=== PATIENT | male | born 1960 | race Caucasian/White ===

== ENCOUNTER 2018-08-17 01:24 | Observation (INO) | payer OTHER ==
[2018-08-17 02:01] LABS: Absolute Lymphocytes (CBC) 1.5 K/uL (0.7-4.9); Absolute Monocytes 0.7 K/uL (0.1-1.3); Absolute Neutrophil 8.3 K/uL (1.8-8.0); Basophils % 0.4 % (0-1.3); Eosinophils % 1.1 % (0-4.4); Hematocrit 46.2 % (39.6-49.0); Lymphocytes % 14.3 % (15.3-44.8); MCH 30.1 pg (27.0-35.0); Monocytes % 6.2 % (3.3-12.3); RBC Red Blood Cell Count 5.19 M/uL (4.33-5.43)
[2018-08-17 02:02] LABS: Protime INR 1.01
--- NOTE | 2018-08-17 02:37 | ER ---
Nurse's Notes [facility] Name: Edd Mosqueda Age: 57 yrs Sex: Male : 1960 Arrival Date: 08/17/2018 Time: 01:25 Bed 17 Private MD: Diagnosis: Chest pain, unspecified;Essential (primary) hypertension Presentation: 08/17 01:39 Presenting complaint: Patient states: Chest pain that began about 1900 tonight, states lp1 thought it would get better but worsened when laying down, "I felt like I couldn't get a deep breath"; Denies any N/V, dizziness; No hx; States taking Ibuprofen x2, Aspirin x2 CAMPAIGN ASSISTANT. Transition of care: patient was not received from another setting of care. Onset of symptoms was August 16, 2018 at 19:00. Risk Assessment: Do you want to hurt yourself or someone else? Patient reports no desire to harm self or others. Initial Sepsis Screen: Does the patient meet any 2 criteria? No. Patient's initial sepsis screen is negative. Does the patient have a suspected source of infection? No. Patient's initial sepsis screen is negative. Care prior to arrival: None. 01:39 Method Of Arrival: Ambulatory lp1 01:39 Acuity: COTY 3 lp1 Triage Assessment: 04:14 General: Behavior is calm, cooperative. lp1 Historical: - Allergies: 01:40 No Known Allergies; lp1 - Home Meds: 01:40 None [Active]; lp1 - PMHx: 01:40 None; lp1 - PSHx: 01:40 None; lp1 - Immunization history:: Adult Immunizations up to date. - Social history:: Smoking status: Patient/guardian denies using tobacco. - Ebola Screening: : No symptoms or risks identified at this time. - Family history:: not pertinent. Screenin:41 Abuse screen: Denies threats or abuse. Denies injuries from another. Nutritional lp1 screening: No deficits noted. Tuberculosis screening: No symptoms or risk factors identified. Fall Risk None identified. Assessment: 01:45 General: Appears. Pain: Pain does not radiate. Pain began 0 08/16/18. ak1 03:15 Reassessment: Patient appears in no apparent distress at this time. Patient and/or lp1 family updated on plan of care and expected duration. Pain level reassessed. Patient is alert, oriented x 3, equal unlabored respirations, skin warm/dry/pink. Patient states feeling better. 04:13 Reassessment: Patient appears in no apparent distress at this time. Pain: Denies pain. lp1 Cardiovascular: Patient's skin is warm and dry. Rhythm is sinus rhythm. Derm: Skin is pink, warm \\T\\ dry. Vital Signs: 01:40 BP 150 / 94; Pulse 74; Resp 20; Temp 98.9(O); Pulse Ox 98% on R/A; Weight 95.25 kg; lp1 Height 5 ft. 8 in. (172.72 cm); Pain 3/10; 02:30 BP 144 / 88; Pulse 71; Resp 20; Pulse Ox 96% on R/A; lp1 03:00 BP 148 / 97; Pulse 72; Resp 17; Pulse Ox 96% ; rr5 04:29 BP 135 / 79; Pulse 75; Resp 17; Pulse Ox 98% on R/A; rr5 01:40 Body Mass Index 31.93 (95.25 kg, 172.72 cm) lp1 ED Course: 01:25 Patient arrived in ED. am2 01:40 Triage completed. lp1 01:41 Arm band placed on left wrist. lp1 01:41 Patient has correct armband on for positive identification. Placed in gown. Bed in low lp1 position. Call light in reach. teletypesetter monitor on. Pulse ox on. NIBP on. 01:41 EKG done, by ED staff, reviewed by Jf Negron MD. Patient maintains SpO2 saturation lp1 greater than 95% on room air. 01:43 Ruthie Wu RN is Primary Nurse. ak1 01:46 Initial lab(s) drawn, by va, sent to lab. Inserted saline lock: 18 gauge in right ak1 forearm, using aseptic technique. Blood collected. 01:51 Jf Negron MD is Attending Physician. nimesh 02:05 X-ray completed. Portable x-ray completed in exam room. Patient tolerated procedure kw well. 02:06 XRAY Chest (1 view) In Process Unspecified. EDMS 02:35 Wolfgang Jiang MD is Hospitalizing Provider. nimesh 03:15 Report received from Ruthie Wu RN. lp1 03:[address] via stretcher. kw1 03:34 CT completed. Patient tolerated procedure well. Patient moved back from CT. kw1 04:12 No provider procedures requiring assistance completed. Patient admitted, IV remains in lp1 place. 08:13 EKG done, by emergency room tech. reviewed by Geo Zhu MD. 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 nimesh 04:14 Condition: stable lp1 04:14 Instructed on the need for admit. 04:42 Admitted to ER Hold. Please see [facility] for further documentation. lp1 13:14 Patient left the ED. ss Signatures: Dispatcher [employer] EDMS Jf Negron MD MD cha Smirch, Shelby, RN RN Mikala Joshi Laura, RN RN 1 Mary Lou Winter, tree driller EKG Tat1 Ruthie Wu RN RN oh1 Mary Lou Choe am2 Allie Riley kw Robert Resendez RN RN rr5 Corrections: (The following items were deleted from the chart) 04:48 04:42 Admitted to ER Hold. Please see [facility] for further documentation. lp1 lp1 05:15 05:05 BP 130 / 78; Pulse 101bpm; Resp 16bpm; Pulse Ox 97% RA; Temp 98.3F Oral; Pain rr5 0/10; post blood transfusion 1st unit. no complaint made,comfortable.denies any chest, flank pain or itchiness.; rr5 05:47 02:53 Aspirin Chewable Tablet 324 mg PO lp1 lp1 05:47 04:00 Response: No adverse reaction lp1 lp1
--- NOTE | 2018-08-17 02:37 | EDPHYS ---
Physician Documentation [facility] Name: Edd Mosqueda Age: 57 yrs Sex: Male : 1960 Arrival Date: 08/17/2018 Time: 01:25 Bed 17 Private MD: ED Physician Jf Negron HPI: 08/17 02:32 This 57 yrs old Male presents to ER via Ambulatory with complaints of Chest nimesh Pain. 02:32 The patient or guardian reports chest pain that is located primarily in the substernal nimesh area, anterior chest wall, bilaterally. Onset: just prior to arrival. The pain radiates to Associated signs and symptoms: Pertinent positives: shortness of breath. The chest pain is described as a heaviness, a pressure. Duration: The patient or guardian reports a single episode, that is still ongoing, but improving. Modifying factors: The symptoms are alleviated by nothing. the symptoms are aggravated by nothing. deep breath. Severity of pain: At its worst the pain was severe in the emergency department the pain has improved moderately. The patient has not experienced similar symptoms in the past. Historical: - Allergies: 01:40 No Known Allergies; lp1 - Home Meds: 01:40 None [Active]; lp1 - PMHx: 01:40 None; lp1 - PSHx: 01:40 None; lp1 - Immunization history:: Adult Immunizations up to date. - Social history:: Smoking status: Patient/guardian denies using tobacco. - Ebola Screening: : No symptoms or risks identified at this time. - Family history:: not pertinent. ROS: 02:32 Constitutional: Negative for fever, chills, and weight loss, Eyes: Negative for injury, nimesh pain, redness, and discharge, ENT: Negative for injury, pain, and discharge, Neck: Negative for injury, pain, and swelling, Respiratory: Negative for shortness of breath, cough, wheezing, and pleuritic chest pain, Abdomen/GI: Negative for abdominal pain, nausea, vomiting, diarrhea, and constipation, Back: Negative for injury and pain, : Negative for injury, bleeding, discharge, and swelling, MS/Extremity: Negative for injury and deformity, Skin: Negative for injury, rash, and discoloration, Neuro: Negative for headache, weakness, numbness, tingling, and seizure, Psych: Negative for depression, anxiety, suicide ideation, homicidal ideation, and hallucinations, Allergy/Immunology: Negative for hives, rash, and allergies, Endocrine: Negative for neck swelling, polydipsia, polyuria, polyphagia, and marked weight changes, Hematologic/Lymphatic: Negative for swollen nodes, abnormal bleeding, and unusual bruising. 02:32 Cardiovascular: Positive for chest pain, of the chest. Exam: 02:32 Constitutional: This is a well developed, well nourished patient who is awake, alert, nimesh and in no acute distress. Head/Face: Normocephalic, atraumatic. Eyes: Pupils equal round and reactive to light, extra-ocular motions intact. Lids and lashes normal. Conjunctiva and sclera are non-icteric and not injected. Cornea within normal limits. Periorbital areas with no swelling, redness, or edema. ENT: Nares patent. No nasal discharge, no septal abnormalities noted. Tympanic membranes are normal and external auditory canals are clear. Oropharynx with no redness, swelling, or masses, exudates, or evidence of obstruction, uvula midline. Mucous membranes moist. Neck: Trachea midline, no thyromegaly or masses palpated, and no cervical lymphadenopathy. Supple, full range of motion without nuchal rigidity, or vertebral point tenderness. No Meningismus. Chest/axilla: Normal chest wall appearance and motion. Nontender with no deformity. No lesions are appreciated. Cardiovascular: Regular rate and rhythm with a normal S1 and S2. No gallops, murmurs, or rubs. Normal PMI, no JVD. No pulse deficits. Respiratory: Lungs have equal breath sounds bilaterally, clear to auscultation and percussion. No rales, rhonchi or wheezes noted. No increased work of breathing, no retractions or nasal flaring. Abdomen/GI: Soft, non-tender, with normal bowel sounds. No distension or tympany. No guarding or rebound. No evidence of tenderness throughout. Back: No spinal tenderness. No costovertebral tenderness. Full range of motion. Male : Normal genitalia with no discharge or lesions. Skin: Warm, dry with normal turgor. Normal color with no rashes, no lesions, and no evidence of cellulitis. MS/ Extremity: Pulses equal, no cyanosis. Neurovascular intact. Full, normal range of motion. Neuro: Awake and alert, GCS 15, oriented to person, place, time, and situation. Cranial nerves II-XII grossly intact. Motor strength 5/5 in all extremities. Sensory grossly intact. Cerebellar exam normal. Normal gait. Psych: Awake, alert, with orientation to person, place and time. Behavior, mood, and affect are within normal limits. 02:34 Musculoskeletal/extremity: DVT Exam: No signs of deep vein thrombosis. no pain, no nimesh swelling, no tenderness, negative Homans' sign noted on exam, no appreciated bluish discoloration, no erythema, no increased warmth. Vital Signs: 01:40 BP 150 / 94; Pulse 74; Resp 20; Temp 98.9(O); Pulse Ox 98% on R/A; Weight 95.25 kg; lp1 Height 5 ft. 8 in. (172.72 cm); Pain 3/10; 02:30 BP 144 / 88; Pulse 71; Resp 20; Pulse Ox 96% on R/A; lp1 03:00 BP 148 / 97; Pulse 72; Resp 17; Pulse Ox 96% ; rr5 04:29 BP 135 / 79; Pulse 75; Resp 17; Pulse Ox 98% on R/A; rr5 01:40 Body Mass Index 31.93 (95.25 kg, 172.72 cm) lp1 MDM: 01:51 Patient medically screened. [facility] 02:34 Data reviewed: vital signs, nurses notes, lab test result(s), EKG, radiologic studies, [facility] CT scan, plain films. 08/17 01:44 Order name: Basic Metabolic Panel; Complete Time: 03:21 [facility] 08/17 01:44 Order name: CBC with Diff; Complete Time: 02:22 [facility] 08/17 01:44 Order name: LFT's; Complete Time: 03:21 [facility] 08/17 01:44 Order name: Magnesium; Complete Time: 03:21 [facility] 08/17 01:44 Order name: NT PRO-BNP; Complete Time: 03:21 [facility] 08/17 01:44 Order name: PT-INR; Complete Time: 02:22 [facility] 08/17 01:44 Order name: Troponin (emerg Dept Use Only); Complete Time: 03:21 [facility] 08/17 01:44 Order name: XRAY Chest (1 view) [facility] 08/17 02:44 Order name: Lipase; Complete Time: 03:21 [facility] 08/17 04:44 Order name: Urine Dipstick--Ancillary (enter results) nd 08/17 05:44 Order name: Urine Dipstick-Ancillary [facility] 08/17 06:21 Order name: Lipid Profile [facility] 08/17 08:19 Order name: Troponin I [facility] 08/17 01:44 Order name: EKG; Complete Time: 01:45 [facility] 08/17 01:44 Order name: Cardiac monitoring; Complete Time: 01:44 [facility] 08/17 01:44 Order name: EKG - Nurse/Tech; Complete Time: 01:44 [facility] 08/17 01:44 Order name: IV Saline Lock; Complete Time: 01:45 [facility] 08/17 01:44 Order name: Labs collected and sent; Complete Time: 01:45 [facility] 08/17 01:44 Order name: O2 Per Protocol; Complete Time: 01:45 [facility] 08/17 01:44 Order name: O2 Sat Monitoring; Complete Time: 01:45 [facility] 08/17 02:25 Order name: Urine Dipstick-Ancillary (obtain specimen); Complete Time: 04:41 [facility] 08/17 02:31 Order name: CT Chest For PE Angio [facility] 08/17 02:39 Order name: CONS Physician Consult [facility] 08/17 02:40 Order name: Echo with Doppler [facility] 08/17 08:42 Order name: CT 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 Preliminary diagnosis are Chest pain, unspecified, Essential (primary) hypertension. - Bed requested for Telemetry/MedSurg (observation). - Status is Observation. ss - Condition is Stable. - Problem is new. - Symptoms have improved. UTI on Admission? No Signatures: Dispatcher [employer] EDLA Allie Santoyo, RN RN Jf Menendez MD MD cha Smirch, Shelby, RN RN ss Donna Forde, RN RN lp1 Ruthie Wu RN RN ak1 Eloise Carlson RN RN df Corrections: (The following items were deleted from the chart) 02:42 02:35 Hospitalization Ordered by Wolfgang Jiang MD for Observation. Preliminary kl diagnosis is Chest pain, unspecified; Essential (primary) hypertension. Bed requested for Telemetry/MedSurg (observation). Status is Observation. Condition is Stable. Problem is new. Symptoms have improved. UTI on Admission? No. nimesh 02:44 02:25 LIPASE+C.LAB.BRZ ordered. [facility] 11:33 02:42 08/17/2018 02:35 Hospitalization Ordered by Wolfgang Jiang MD for Observation. df Preliminary diagnosis is Chest pain, unspecified; Essential (primary) hypertension. Bed requested for [facility] ER HOLD. Status is Observation. Condition is Stable. Problem is new. Symptoms have improved. UTI on Admission? No. kl 13:14 11:33 08/17/2018 02:35 Hospitalization Ordered by Wolfgang Jiang MD for Observation. ss Preliminary diagnosis is Chest pain, unspecified; Essential (primary) hypertension. Bed requested for Telemetry/MedSurg (observation). Status is Observation. Condition is Stable. Problem is new. Symptoms have improved. UTI on Admission? No. df
[2018-08-17] MEDS ORDERED: METOPROLOL TAR 50 MG TAB ONE (02:53)
[2018-08-17] MEDS ORDERED: ASPIRIN 81 MG CHEWABLE TABLET ONE ×2 (02:53→07:45)
[2018-08-17] MEDS ORDERED: ENOXAPARIN 100 MG/ML SYR SQ ONE (02:53)
[2018-08-17] MEDS ORDERED: NA CHLORIDE 0.9% 1,000 ML ONE (02:54)
[2018-08-17 03:01] LABS: ALT/SGPT 30 U/L (12-78); AST/SGOT 16 U/L (15-37); Albumin 3.9 g/dL (3.4-5.0); Alkaline Phosphatase 50 U/L (45-117); BUN Blood Urea Nitrogen 19 mg/dL (7-18); Bicarbonate 26 mmol/L (21-32); Bilirubin Direct 0.1 mg/dL (0-0.2); Bilirubin Total 0.5 mg/dL (0.2-1.0); Glucose Level 115 mg/dL (74-106); Lipase 130 U/L (73-393); Magnesium 1.9 mg/dL (1.8-2.4); NT PRO-BNP 47 pg/mL (<125); Potassium 3.9 mmol/L (3.5-5.1); Protein, Total 7.6 g/dL (6.4-8.2); Sodium Level 140 mmol/L (136-145); Troponin (Emerg Dept Use Only) < 0.02 ng/mL (0.0-0.045)
--- NOTE | 2018-08-17 04:16 | P.HP ---
Certification for Inpatient Patient admitted to: Observation With expected LOS: <2 Midnights Practitioner: I am a practitioner with admitting privileges, knowledge of patient current condition, hospital course, and medical plan of care. Services: Services provided to patient in accordance with Admission requirements found in Title 42 Section 412.3 of the Code of Federal Regulations Patient History Date of Service: 08/17/18 Reason for admission: Chest pain History of Present Illness: Mr Mosqueda 67-year-old male with a pretty benign past medical history who came to the ED complaining of chest pain his symptoms started about 7 o'clock yesterday afternoon. He described pressure-like chest pain in retrosternal area , with radiation, 9/10 of intensity, associated with shortness of breath. He denied nausea, vomiting or diaphoresis. He has never had these symptoms in the past. Lying down makes the pain worse, however, the pain is normally from the with chest movement or deep breath. Initial troponin I is negative, EKG shows no acute ST-T abnormality. Home medications list reviewed: Yes - Past Medical/Surgical History Past Medical History: Reviewed- Non-Contributory Past Surgical History: Reviewed- Non-Contributory - Family History Family History: Reviewed- Non-Contributory - Social History Smoking Status: Former smoker CD- Drugs: No Place of Residence: Home Review of Systems 10-point ROS is otherwise unremarkable Physical Examination - Physical Exam General: Alert, In no apparent distress HEENT: Atraumatic, PERRLA, Mucous membr. moist/pink, EOMI, Sclerae nonicteric Neck: Supple, 2+ carotid pulse no bruit, No LAD, Without JVD or thyroid abnormality Respiratory: Clear to auscultation bilaterally, Normal air movement Cardiovascular: Regular rate/rhythm, Normal S1 S2, Systolic murmur (Aortic area 3/6), Diastolic murmur Gastrointestinal: Normal bowel sounds, No tenderness Musculoskeletal: No tenderness Integumentary: No rashes Neurological: Normal speech, Normal strength at 5/5 x4 extr, Normal tone, Normal affect Lymphatics: No axilla or inguinal lymphadenopathy - Studies Laboratory Data (last 24 hrs) 08/17/18 02:24: Lipase Cancelled 08/17/18 01:45: PT 11.9, INR 1.01 08/17/18 01:45: WBC 10.6, Hgb 15.6, Hct 46.2, Plt Count 193 08/17/18 01:45: Sodium 140, Potassium 3.9, BUN 19 H, Creatinine 0.90, Glucose 115 H, Magnesium 1.9, Total Bilirubin 0.5, AST 16, ALT 30, Alkaline Phosphatase 50, Lipase 130 Assessment and Plan - Problems (Diagnosis) (1) Chest pain Current Visit: Yes Status: Acute Qualifiers: Chest pain type: precordial pain Qualified Code(s): R07.2 - Precordial pain (2) Cardiac murmur Current Visit: Yes Status: Acute (3) Hypertension Current Visit: Yes Status: Acute Qualifiers: Hypertension type: essential hypertension Qualified Code(s): I10 - Essential (primary) hypertension - Plan The patient will be admitted to the hospital due to chest pain. He had CT angiogram which is negative for PE, awaiting formal report from radiologist. Initial troponin I is negative, EKG shows no acute ST-T abnormality. Will order serial cardiac enzymes and EKG. He has systole and diastolic or more in aortic area, will order echocardiogram. Consult Cardiology for evaluation recommendation. - Advance Directives Does patient have a Living Will: No Does patient have a Durable POA for Healthcare: No - Code Status/Comfort Care Code Status Assessed: Yes Code Status: Full Code
[2018-08-17] MEDS ORDERED: ACETAMINOPHEN 500 MG TAB PO PRN (04:18)
[2018-08-17] MEDS ORDERED: ONDANSETRON 4 MG/2 ML VIAL IV PRN (04:18)
[2018-08-17 05:00] VITALS: BMI 31.9
[2018-08-17 05:43] LABS: Urine Blood TRACE (NEG); Urine Glucose NEGATIVE (NEG); Urine Protein NEGATIVE (NEG); Urine pH 5.5 (5.0-7.0)
--- NOTE | 2018-08-17 07:05 | EKG ---
Test Date: 2018-08-17 Test Time: 01:33:02 Light Equipment Operator: FRED MEASUREMENT RESULTS: Intervals: Rate: 73 [place]: 166 QRSD: 92 QT: 396 QTc: 436 [place]: P: 46 [place]: 166 QRS: -10 T: 15 INTERPRETIVE STATEMENTS: Normal sinus rhythm Minimal voltage criteria for LVH, may be normal variant Borderline ECG No previous ECG available for comparison Electronically Signed On 08-17-18 07:04:07 GAME FARM HELPER by Rod Tapia
[2018-08-17] MEDS ORDERED: ENOXAPARIN 40 MG/0.4 ML SQ ONE (07:46)
--- NOTE | 2018-08-17 08:40 | RAD REPORT ---
EXAM DESCRIPTION: RAD - Chest Single View - 08/17/2018 2:06 am CLINICAL HISTORY: CHEST PAIN Chest pain. COMPARISON: Chest For Pe Angio dated 08/17/2018 FINDINGS: Portable technique limits examination quality. The lungs are grossly clear. The heart is normal in size. No displaced fractures. IMPRESSION: No acute intrathoracic process suspected.
--- NOTE | 2018-08-17 08:42 | RAD REPORT ---
EXAM DESCRIPTION: CT - Chest For Pe Angio - 08/17/2018 5:53 am CLINICAL HISTORY: Chest pain. CHEST PAIN COMPARISON: No comparisons TECHNIQUE: CT angiogram of the pulmonary arteries was performed with MIP. All CT scans are performed using dose optimization technique as appropriate and may include automated exposure control or mA/KV adjustment according to patient size. FINDINGS: No evidence of pulmonary thromboembolism. No acute aortic finding demonstrated. Minimal dependent interstitial pulmonary edema suspected. Trace left pleural fluid. No right-sided pleural fluid. No concerning bony finding. IMPRESSION: No evidence of pulmonary thromboembolism. Minimal dependent interstitial pulmonary edema suspected.
[2018-08-17] MEDS ORDERED: ENOXAPARIN 40 MG/0.4 ML SQ SCH ×2 (09:00→21:00)
[2018-08-17] MEDS: ASPIRIN 81 MG CHEWABLE TABLET PO SCH (09:00)
[2018-08-17] MEDS ORDERED: METHYLPREDNISOLONE 125 MG INJ IV ONE (10:29)
[2018-08-17] MEDS: COLCHICINE 0.6 MG TAB PO SCH ×2 (10:31→19:58)
--- NOTE | 2018-08-17 12:59 | EKG ---
Test Date: 2018-08-17 Test Time: 07:54:43 Procurement Representative: BRIA MEASUREMENT RESULTS: Intervals: Rate: 63 [place]: 168 QRSD: 100 QT: 414 QTc: 423 [place]: P: 28 [place]: 168 QRS: -14 T: 18 INTERPRETIVE STATEMENTS: Normal sinus rhythm Voltage criteria for left ventricular hypertrophy Pericarditis or Early repolarization Abnormal ECG Compared to ECG 08/17/2018 01:33 no significant change from previous ECG Electronically Signed On 08-17-18 12:59:00 ANIMAL RESCUER by Rod Tapia
--- NOTE | 2018-08-17 14:47 | ECHO ---
HEIGHT: 5 ft 8 in WEIGHT: 209 lb 15.845 oz DATE OF STUDY: 08/17/[address]: Jf Negron MD 2-DIMENSIONAL: YES M.MODE: YES DOPPLER: YES COLOR FLOW: YES TDS: PORTABLE: DEFINITY: BUBBLE STUDY: DIAGNOSIS: CHEST PAIN CARDIAC HISTORY: CATHERIZATION: NO SURGERY: NO PROSTHETIC VALVE: NO PACEMAKER: NO MEASUREMENTS (cm) DIASTOLIC (NORMALS) SYSTOLIC (NORMALS) IVSd 1.1 (0.6-1.2) LA Diam 4.3 (1.9-4.0) LVEF 61% LVIDd 4.6 (3.5-5.7) LVIDs 3.1 (2.0-3.5) %FS 33% LVPWd 1.1 (0.6-1.2) Ao Diam 3.1 (2.0-3.7) 2 DIMENSIONAL ASSESSMENT: RIGHT ATRIUM: NORMAL LEFT ATRIUM: DILATED RIGHT VENTRICLE: NORMAL LEFT VENTRICLE: NORMAL TRICUSPID VALVE: NORMAL MITRAL VALVE: NORMAL PULMONIC VALVE: NORMAL AORTIC VALVE: MILD SCLEROSIS PERICARDIAL EFFUSION: NONE AORTIC ROOT: NORMAL LEFT VENTRICULAR WALL MOTION: NORMAL DOPPLER/COLOR FLOW: NO AORTIC STENOSIS OR AORTIC REGURGITATION. COMMENTS: NORMAL LEFT VENTRICULAR EJECTION FRACTION. DILATED LEFT ATRIUM. AORTIC SCLEROSIS WITH NO AORTIC STENOSIS OR AORTIC REGURGITATION. TECHNOLOGIST: GORDY NIX
--- NOTE | 2018-08-17 18:13 | CON ---
Chief Complaint: Chest pain. History Of Present Illness: Mr. Mosqueda started to have chest pain last night. It is a very ple uritic pain. If he sits leaning almost upright or leans forward, he does not have it. If he lays fl at, it gets worse. If he takes a deep breath, it gets worse. He has never had any kind of heart dis ease. He is a nonsmoker, has normal blood pressure, normal blood sugars, normal cholesterol, uses no tobacco, and has not even seen the inside of the hospital for decades. He seems to be very proud of the fact that he does not need medical attention very much. He takes no medications. Has no allerg ies. No recreational drug use. Rare alcohol. No history of testing on his heart. Physical Examination: Vital Signs: 5 feet 8 inch, 209 pounds. General: Alert, oriented, pleasant, not in distress. Lungs: Clear. CARDIAC: Exam reveals a pericardial friction rub. Abdomen: Soft extremities normal no cyanosis, clubbing, or edema. Distal pulses are normal. His EKG shows an ST abnormality that would be consistent with pericarditis or early repolarization. Two EKGs have shown the same thing. A CT angio of the chest is negative for pulmonary embolus. An e chocardiogram has not been done yet but is ordered. Impression: The patient's chest pain is from pericarditis. It is not an acute coronary syndrome. I recommend we give 1 dose of steroids given colchicine as soon as he is asymptomatic. I think he cou ld be discharged home. He could probably take colchicine for about a week and then if there is any r ecurrence, we could do a workup for rheumatologic diseases. He does have arthritic pain, but no phys ical signs or symptoms suggestive of rheumatoid arthritis or lupus. Nonetheless, the sed rate is probably worthwhile. LEVI/DONNA Voice ID: [id number] Report ID: [id number]
--- NOTE | 2018-08-17 20:38 | PN ---
Date of Progress Note: 08/17/2018 Subjective: The patient seen and examined, chart reviewed, and case discussed with RN. The patient states his chest pain has improved, but not entirely resolved. Review of Systems: Negative except as above. Medications: List reviewed. Physical Examination: Vital Signs: Temperature 98.1, heart rate 67, blood pressure 138/84, respirations 16, O2 96% on room air. General: Awake, alert, oriented x3, in mild distress. CV: S1 and S2. Regular rate and rhythm. Peripheral pulses present. No murmurs. Respiratory: Moving air well bilaterally. No wheezing or stridor. Gastrointestinal: Abdomen is soft, nontender, nondistended. Positive bowel sounds. Extremities: No clubbing, cyanosis, or edema. Neuro: Nonfocal. Laboratory Data: Troponin level less than 0.02 x3, triglycerides 87, cholesterol 148, LDL 77, HDL 54 . Echocardiogram shows EF of 61%, dilated left atrium, aortic sclerosis with no aortic stenosis, aor tic regurgitation. CT angio chest shows no evidence of PE. Minimal dependent interstitial pulmonary edema suspected. Assessment/plan: The 57-year-old male with: 1.Chest pain. ACS has been rule out. Echocardiogram shows EF of 60%. Continue chest pain guidelin es. Appreciate Dr. Tapia's input. 2.Essential hypertension. The patient does not have history of high blood pressure and is not takin g medications at home. We will continue to monitor blood pressure and resumed medications. 3.Echocardiogram shows aortic sclerosis but no stenosis. 4.Hypocalcemia. We will replace and monitor. Plan: Follow up with Cardiology recommendations. Likely discharge in the next 24 hours if continues to improve. /DONNA Voice ID: [id number] Report ID: [id number]
[2018-08-18] MEDS: COLCHICINE 0.6 MG TAB PO SCH (08:18)
[2018-08-18] MEDS: ASPIRIN 81 MG CHEWABLE TABLET PO SCH (08:19)
[2018-08-18 08:20] VITALS: BP 129/82
[2018-08-18] MEDS ORDERED: LISINOPRIL 10 MG TAB PO SCH (09:00)
[2018-08-18 09:06] VITALS: TEMP 98.5
[2018-08-18 09:50] VITALS: O2SAT 92
--- NOTE | 2018-08-18 14:25 | PN ---
Mr. Mosqueda had a normal echo. No effusion. He has a sed rate of 11. So, it is very unlikely vito escobedo has any systemic disease causing this. Most likely this is benign. He had pericarditis. It is no t an acute coronary syndrome. I think he can be discharged with colchicine. He can also use ibuprof en if the pain occurs. He plans to return back to the [facility] in about a month where he normally lives and he will seek care from a lab pack chemist there. LAMONTE Voice ID: [id number] Report ID: [id number]
--- NOTE | 2018-08-19 05:49 | DS ---
Date of Discharge: 08/18/2018 Consultants: Dr. Tapia with Cardiology. Admitting Diagnoses: 1.Chest pain. 2.Cardiac murmur. 3.Essential hypertension. Discharge Diagnoses: 1.Chest pain, pleuritic, acute coronary syndrome ruled out. Improved with colchicine. 2.Pericarditis. 3.Elevated blood pressure without diagnosis of hypertension, improved, diet controlled for now. 4.Heart murmur secondary to aortic sclerosis without stenosis or regurgitation. 5.Obesity. Hospital Course: The patient is a 57-year-old male, who came into the hospital with chest pain. Thi s was worked up. Imaging studies did not show any PE. Did have minimal interstitial pulmonary edema . The patient did have a pericardial friction rub thought to be from pericarditis. EKG did show becka e ST abnormality consistent with pericarditis or early repolarization. Echocardiogram was done, whic h showed an ejection fraction of 61%, however, did show dilated left atrium, aortic sclerosis with no stenosis or regurgitation. The patient was started on colchicine by Dr. Tapia. The patient's symp toms did improve with colchicine. The patient's cardiac enzymes were negative. His cholesterol pane l was normal. The patient was then cleared for discharge as his pain had resolved. Regarding his bl ood pressure which was running in 100s to 120s, he will hold off on blood pressure medication for now as it is currently on hypotensive to normotensive side. The patient was recommended to have dietary changes made. He does have blood pressure cuff at home. He need to monitor his blood pressure on a regular basis and provide a copy to primary care physician and be started on medications if blood pr essure again starts to become elevated. The patient agrees to follow up with Dr. Tapia, cardiologarshad t. He does live in [facility], however, is here for another month on a work assignment. Diet: Heart healthy. Activity: As tolerated. Medications: As per medication reconciliation list. Followup: Follow up with primary care physician in 2 to 3 days. Follow up with advanced analytics associate, Dr. Moris nolen, in 2 weeks. Return to ER for worsening condition. Physical Examination: General: Awake, alert, oriented, no acute distress. CV: S1, S2. No murmurs. Respiratory: Moving air well bilaterally. No wheezing. Gastrointestinal: Abdomen is soft, nontender, nondistended. Positive bowel sounds. Extremities: No clubbing, cyanosis, or edema. Neurologic: Nonfocal. SA/MODL Voice ID: [id number] Report ID: [id number]
== END 2018-08-18 09:59 | disposition home or self-care (01) ==
LOC: ER 01:24 → ERHOLD 02:36 → 4TH 12:41
PROVIDERS: ADMIT Internal Medicine; ATTEND Internal Medicine
DX: R07.1 Chest pain on breathing (principal); I31.9 Disease of pericardium, unspecified; R01.1 Cardiac murmur, unspecified; E83.51 Hypocalcemia; R03.0 Elevated blood-pressure reading, without diagnosis of hypertension; I70.0 Atherosclerosis of aorta; E66.9 Obesity, unspecified; Z68.31 Body mass index [BMI] 31.0-31.9, adult
CPT/HCPCS: 36415; 71045; 71275; 80048; 80061; 80076; 81003; 83690; 83735; 83880; 84484; 85025; 85610; 85652; 93005; 93306; 96360; 96361; 96372; 99285; G0378; J1650; J2930; J7030; Q9967